=== PATIENT | male | born 1960 | race Caucasian/White ===

== ENCOUNTER 2019-04-04 17:10 | Emergency (ER) | payer SELFPAY ==
[~2019-04-04] VITALS: Ht 177.8 cm; Wt 109.8 kg
--- NOTE | 2019-04-04 17:28 | NUR ---
Patient ambulated to bed 4. RN evaluating patient at bedside.
[2019-04-04 17:30] VITALS: BP 150/99
[2019-04-04 17:41] VITALS: BP 150/99
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
[2019-04-04] MEDS ORDERED: KETOROLAC 30 MG/ML VIAL IM ONE (18:40)
--- NOTE | 2019-04-04 19:18 | NUR ---
Pt report given to JOSÉ MIGUEL FISCHER. Transfer of care at this time.
--- NOTE | 2019-04-04 19:22 | NUR ---
report recieved from AMADO Reid. Transfer of care at this time.
== END 2019-04-04 19:38 | disposition home or self-care (01) ==
LOC: MED 17:10
DX: S39.012A Strain of muscle, fascia and tendon of lower back, initial encounter (principal); M51.37 Other intervertebral disc degeneration, lumbosacral region; V89.2XXA Person injured in unspecified motor-vehicle accident, traffic, initial encounter; Y93.89 Activity, other specified; Y92.89 Other specified places as the place of occurrence of the external cause; Y99.8 Other external cause status
CPT/HCPCS: 72110; 81002; 96372; 99283; J1885; Q0092